=== PATIENT | male | born 1980 | race Caucasian/White ===

== ENCOUNTER 2017-01-01 13:05 | Emergency (ER) | payer OTHER ==
[2017-01-01 13:35] VITALS: BP 135/78; PULSE 78; RESP 16; TEMP 98.1; O2SAT 99
--- NOTE | 2017-01-01 13:50 | UCPHY ---
H & P Time Seen by Provider: 01/01/17 13:15 Patient Type: New HPI/ROS: CHIEF COMPLAINT: Cough, sore throat HPI: The patient is a 36-year-old male with no significant past medical history. He complains of approximately 5 days of sore throat and cough. Denies fever. Denies abdominal pain or chest pain. He states his has similar symptoms but his if not improved. He is concerned part because his mother was recently diagnosed with pulmonary fibrosis. REVIEW OF SYSTEMS: Aside from elements discussed in the HPI, a comprehensive 10-point review of systems was reviewed and is negative. PMH: None significant. SOCIAL HISTORY: Works as a freight booker. . FAMILY HISTORY: Positive for pulmonary fibrosis. PHYSICAL EXAM: General:Patient is alert, in no acute distress. ENT:Eyes are normal to inspection. ENT inspection normal. No erythema or exudate. Neck: Normal inspection. Full range of motion. Respiratory:No respiratory distress. Breath sounds normal bilaterally. Cardiovascular: Regular rate and rhythm. Strong peripheral pulses. Normal cap refill. Abdomen:The abdomen is nontender to palpation. There are no peritoneal signs. There are normal bowel sounds. Back: Normal to inspection. No tenderness to palpation. Skin: Normal color. No rash. Warm and dry. Extremities: Normal appearance. Full range of motion. Neuro: Oriented x3. Normal motor function. Normal sensory function. Smoking Status: Never smoked Constitutional: Initial Vital Signs Temperature (C) 36.7 C 01/01/17 13:32 Heart Rate 78 01/01/17 13:32 Respiratory Rate 16 01/01/17 13:32 Blood Pressure 135/78 H 01/01/17 13:32 O2 Sat (%) 99 01/01/17 13:32 O2 Delivery Mode Room Air Allergies/Adverse Reactions: No Known Allergies Allergy (Unverified 01/01/17 13:47) Home Medications: Medication Instructions Recorded Benzonatate [Tessalon Pearles (RX)] 200 mg PO TID PRN #15 cap 01/01/17 HYDROcodone/HOMATROPINE HYCODA 1 tsp PO Q4-6PRN PRN #120 ml 01/01/17 [Hycodan Syrup (RX)] MDM/Departure - MDM ED Course/Re-evaluation: This patient presents with persistent cough and signs and symptoms of acute bronchitis. He is concerned that his symptoms have lasted 1 week. I discussed options with him. He initially requested oral steroids, but I do not hear any wheezing and do not think this is indicated. Patient declines antibiotics. His influenza test is negative and I see no signs of pneumonia on chest x-ray. He is appropriate for outpatient follow-up with cough suppressant. - Depart Disposition: Home, Routine, Self-Care Clinical Impression: Bronchitis Condition: Good Instructions: Acute Bronchitis (ED) Additional Instructions: Use ibuprofen and Tylenol as needed for fever and body aches. Follow up with your primary care physician within 72 hours for reevaluation. Drink plenty of fluids. Return to the emergency department immediately for high fever, severe headache or neck pain, difficulty breathing, abdominal pain, rash or other worsening of condition. Prescriptions: Benzonatate [Tessalon Pearles (RX)] 200 mg PO TID PRN #15 cap PRN Reason: Cough, Severe HYDROcodone/HOMATROPINE HYCODA [Hycodan Syrup (RX)] 1 tsp PO Q4-6PRN PRN #120 ml PRN Reason: Cough, Severe Referrals: NONE *PRIMARY CARE P,. [Primary Care Provider] - As per Instructions - PQRS PQRS Measurement: 134: Depression screening and followup, PRIME MD-PHQ2 (12 years and older) Over the last 2 weeks, how often have you been bothered by any of the following problems? 1. Feeling down, depressed, or hopeless? 2. Little interest or pleasure in doing things? Patient answered no to both 1 and 2 130: Documentation of medications. Reviewed all patient medications, doses, route and frequency. 226: Do you smoke? No. 51: 18 years old and older with diagnosis of COPD, spirometry performance. Spirometry not performed; equipment not available. Patient has no history of COPD 52: 18 years old and older with COPD and symptoms of COPD or FEV1<60% predicted prescribed a B Agonist. Spirometry not performed; equipment not available.
== END 2017-01-01 14:45 | disposition home or self-care (01) ==
LOC: CED 13:05
DX: J20.9 Acute bronchitis, unspecified (principal); Z83.6 Family history of other diseases of the respiratory system
CPT/HCPCS: 71020-PO; 87400-PO; 87880-PO; G0463-PO

== ENCOUNTER → 2018-11-09 | Outpatient (CLI) | payer OTHER | LOC: BMCIMAGING 15:46 | PROVIDERS: ATTEND Orthopaedic Surgery | DX: S69.92XA Unspecified injury of left wrist, hand and finger(s), initial encounter (principal) ==